=== PATIENT | female | born 1945 | race Caucasian/White ===

== ENCOUNTER 2018-05-10 22:22 | Inpatient (IN) | payer OTHER ==
[~2018-05-10] VITALS: Ht 160 cm; Wt 81.3 kg
[~2018-05-10 22:22] MED LIST: ASPIRIN PO; GLYB1POW PO
[2018-05-10] MEDS ORDERED: DILTIAZEM HCL 25 MG/5 ML VIAL IV ONE (23:15)
[2018-05-10 23:22] LABS: Basophils # (auto) 0.1 uL; Basophils % (auto) 0.6 % (0.0-2.0); Eosinophils # (auto) 0.1 uL; Hematocrit 42.6 % (36.0-46.0); Hemoglobin 14.5 g/dL (12.2-16.2); Lymphocytes # (auto) 3.3 uL; Lymphocytes % (auto) 37.2 % (10.0-50.0); Mean Corpuscular Hgb Conc. 34.1 g/dL (32.0-36.0); Monocytes % (auto) 10.8 % (0.0-12.0); Neutrophils # (auto) 4.5 uL; Neutrophils % (auto) 50.4 % (37.0-80.0); Nucleated Red Blood Cells % 0.1 %; Platelet Count (auto) 197 10^3/uL (140-450); Red Blood Cells 4.84 10^6/uL (4.0-5.20); Red Cell Distribution Width 14.4 % (11.8-14.3)
[2018-05-10 23:26] LABS: Urine Bacteria FEW /hpf (None Seen); Urine Blood Negative /uL (Negative); Urine Specific Gravity 1.001 (1.001-1.035); Urine WBC 3 /hpf (0 - 5)
[2018-05-10 23:32] LABS: Albumin 3.6 g/dL (3.4-5.0); BUN/Creatinine Ratio 13.8; Calcium 8.8 mg/dL (8.5-10.1); INR 0.93 (0.9-1.15); Partial Thromboplastin Time 27.8 sec (23.78-33.04); Potassium 3.4 mmol/L (3.5-5.1)
[2018-05-10 23:35] LABS: Bilirubin, Total 0.5 mg/dL (0.2-1.0); Total Protein 7.5 g/dL (6.4-8.2)
[2018-05-11] MEDS ORDERED: POTASSIUM CHL 10 Meq TABLET PO ONE (02:15)
[2018-05-11] MEDS ORDERED: DEXTROSE (50%) 50ML SYRG IV PRN (04:30)
[2018-05-11] MEDS ORDERED: HYDROcodone-ACET 5/325MG TAB PO PRN (04:45)
[2018-05-11] MEDS ORDERED: ACETAMINOPHEN 500 MG TAB PO PRN (04:45)
[2018-05-11] MEDS ORDERED: ONDANSETRON HCL 4 MG/2 ML VIAL IV PRN (04:45)
[2018-05-11] MEDS ORDERED: METF-370 PO (04:56)
[2018-05-11] MEDS ORDERED: TICA90TA PO (04:56)
[2018-05-11] MEDS ORDERED: GABA300C10 PO (04:56)
[2018-05-11] MEDS ORDERED: MET25T PO ×2 (04:56→16:13)
[2018-05-11] MEDS ORDERED: TRAM50TA2 PO (04:56)
[2018-05-11] MEDS ORDERED: GLIP-115 PO (04:56)
[2018-05-11] MEDS ORDERED: LOSA-49 PO (04:56)
[2018-05-11] MEDS ORDERED: ATOR80TA PO (04:56)
[2018-05-11] MEDS ORDERED: INSLANTI SC (04:58)
[2018-05-11 05:39] VITALS: BP 117/60
[2018-05-11 05:49] VITALS: BP 117/60
[2018-05-11] MEDS ORDERED: INSULIN LANTUS (GLARGINE) 1 /0.01ml (100units/ml) SC SCH (07:00)
[2018-05-11] MEDS: GABAPENTIN 300 MG CAP PO SCH ×2 (07:01→14:19)
[2018-05-11] MEDS: InsuLIN REG 1unit/0.01ml Soln (100units/ml) SC SCH ×2 (07:02→12:23)
[2018-05-11] MEDS: ACCU-CHEK COMFORT CURVE STRIP VI SCH ×2 (07:03→12:22)
[2018-05-11] MEDS ORDERED: ENOXAPARIN SOD 80 MG/0.8ML SYRINGE SC SCH ×2 (08:00→10:00)
[2018-05-11 08:05] LABS: Eosinophils # (auto) 0.1 uL; Hematocrit 43.9 % (36.0-46.0); Neutrophils # (auto) 4.6 uL; Platelet Count (auto) 216 10^3/uL (140-450); Red Cell Distribution Width 14.4 % (11.8-14.3)
[2018-05-11 08:08] LABS: Basophils # (auto) 0 uL; Basophils % (auto) 0.6 % (0.0-2.0); Eosinophils % (auto) 1.1 % (0.0-7.0); Hemoglobin 14.6 g/dL (12.2-16.2); Lymphocytes # (auto) 2.6 uL; Lymphocytes % (auto) 32.5 % (10.0-50.0); Mean Corpuscular Hemoglobin 29.7 pg (28.0-32.0); Mean Corpuscular Hgb Conc. 33.3 g/dL (32.0-36.0); Mean Corpuscular Volume 89.3 fL (80.0-100.0); Monocytes # (auto) 0.7 uL; Monocytes % (auto) 8.5 % (0.0-12.0); Neutrophils % (auto) 57.3 % (37.0-80.0); Nucleated Red Blood Cells % 0.1 %; Red Blood Cells 4.91 10^6/uL (4.0-5.20); White Blood Cell 8.1 10^3/uL (4.4-10.8)
[2018-05-11 08:16] LABS: INR 0.92 (0.9-1.15); Partial Thromboplastin Time 28.4 sec (23.78-33.04); Prothrombin Time 9.9 sec (9.27-12.13)
[2018-05-11 08:24] LABS: BUN/Creatinine Ratio 16.2; Calcium 8.4 mg/dL (8.5-10.1)
[2018-05-11 08:33] VITALS: BP 90/58
[2018-05-11] MEDS ORDERED: METOPROLOL TARTRATE 25 MG TAB PO SCH ×3 (10:00→22:00)
[2018-05-11 13:07] VITALS: BP 122/78
[2018-05-11] MEDS ORDERED: APIX5TAB PO (16:13)
[2018-05-11 16:42] VITALS: BP 122/78
[2018-05-11 17:13] VITALS: BP 139/89
[2018-05-11] MEDS ORDERED: APIXABAN 5 MG TAB PO SCH (22:00)
[2018-05-11] MEDS ORDERED: InsuLIN REG 1unit/0.01ml Soln (100units/ml) SC SCH (22:00)
[2018-05-11] MEDS ORDERED: ATORVASTATIN 20 MG TAB PO SCH (22:00)
[2018-05-11] MEDS ORDERED: TICAGRELOR 90 MG TAB PO SCH (22:00)
== END 2018-05-11 18:01 | disposition home or self-care (01) | DRG 291 ==
LOC: EDBD 22:22 → ER 22:22 → TELE 22:23 → TELE-WESTW 05-11 05:12
PROVIDERS: ADMIT Nurse Practitioner Family; ATTEND Internal Medicine
DX: I11.0 Hypertensive heart disease with heart failure (principal); I50.31 Acute diastolic (congestive) heart failure; D68.69 Other thrombophilia; I48.0 Paroxysmal atrial fibrillation; E11.65 Type 2 diabetes mellitus with hyperglycemia; E78.5 Hyperlipidemia, unspecified; E87.6 Hypokalemia; E66.9 Obesity, unspecified; I25.10 Atherosclerotic heart disease of native coronary artery without angina pectoris; I25.2 Old myocardial infarction; Z79.01 Long term (current) use of anticoagulants; Z79.4 Long term (current) use of insulin; Z88.0 Allergy status to penicillin; Z88.8 Allergy status to other drugs, medicaments and biological substances; Z68.31 Body mass index [BMI] 31.0-31.9, adult
CPT/HCPCS: 36415; 71045; 80048; 80053; 81001; 82010; 82962; 83036; 83735; 84443; 85025; 85610; 85730; 93005; 93306; 96372; 96374; G0378; J1815